=== PATIENT | female | born 1975 | race Two or more races ===

== ENCOUNTER 2018-03-15 10:11 | Outpatient (CLI) | payer OTHER | END 2018-03-15 11:21 | disposition home or self-care (01) | LOC: SONOGRAMA 10:11 | DX: N93.8 Other specified abnormal uterine and vaginal bleeding (principal) ==

== ENCOUNTER 2018-06-13 05:50 | Day surgery (SDC) | payer OTHER ==
[2018-06-13] MEDS ORDERED: NAPROXEN SODIU550 MG PO (08:20)
== END 2018-06-13 12:45 | disposition home or self-care (01) ==
LOC: CIR.AMB 05:50
DX: N84.0 Polyp of corpus uteri (principal); N94.19 Other specified dyspareunia